=== PATIENT | male | born 1945 | race Caucasian/White ===

== ENCOUNTER 2021-12-23 08:16 | Day surgery (SDC) | payer OTHER ==
[~2021-12-23] VITALS: Ht 185.4 cm; Wt 65.6 kg
[~2021-12-23 08:16] MED LIST: ALBU90OI INH; DABI150C; FINA5 PO; MIRT15 PO; Mucus Relief400 MG PO
--- NOTE | 2021-12-23 08:51 | NUR ---
12/23/21 0[address] [facility] @ 1359, GREGORY @ 8290
--- NOTE | 2021-12-23 10:07 | NUR ---
12/23/21 GINNY CARDENAS PT PLACED ON 4L O2 DUE TO DECREASE IN SATS IN HIGH 80'S. TRIAL DOWN TO 2L, ENCOUGE DEEP BREATHE AND COUGH
== END 2021-12-23 10:33 | disposition home or self-care (01) ==
LOC: ORSCSDS 08:16
PROVIDERS: Ophthalmology
PROC: 08RK3JZ Replacement of Left Lens with Synthetic Substitute, Percutaneous Approach (ICD-10-PCS; principal; 2021-12-23 09:30)
DX: H25.12 Age-related nuclear cataract, left eye (principal); I10 Essential (primary) hypertension; J44.9 Chronic obstructive pulmonary disease, unspecified; F17.210 Nicotine dependence, cigarettes, uncomplicated; N40.0 Benign prostatic hyperplasia without lower urinary tract symptoms; Z79.899 Other long term (current) drug therapy; Z99.81 Dependence on supplemental oxygen
CPT/HCPCS: J2001; J2250; J3010; J3301; J7040; V2632

== ENCOUNTER 2022-01-13 11:53 | Day surgery (SDC) | payer OTHER ==
[~2022-01-13] VITALS: Ht 185.4 cm; Wt 65.9 kg
--- NOTE | 2022-01-13 12:31 | NUR ---
01/13/22 1231 Betzaida Abarca RIGHT EYE @1230 GREGORY RIGHT EYE @ 1231 BY [email or web address]
== END 2022-01-13 14:29 | disposition home or self-care (01) ==
LOC: ORSCSDS 11:53
PROVIDERS: Ophthalmology
PROC: 08RJ3JZ Replacement of Right Lens with Synthetic Substitute, Percutaneous Approach (ICD-10-PCS; principal; 2022-01-13 13:30)
DX: H25.11 Age-related nuclear cataract, right eye (principal); Z96.1 Presence of intraocular lens; J44.9 Chronic obstructive pulmonary disease, unspecified; F03.90 Unspecified dementia, unspecified severity, without behavioral disturbance, psychotic disturbance, mood disturbance, and anxiety; I48.91 Unspecified atrial fibrillation; N40.0 Benign prostatic hyperplasia without lower urinary tract symptoms; Z79.899 Other long term (current) drug therapy; F17.210 Nicotine dependence, cigarettes, uncomplicated
CPT/HCPCS: J2001; J2250; J3010; J3301; J7040; V2632